=== PATIENT | male | born 1955 | race Caucasian/White ===

== ENCOUNTER 2018-02-28 07:46 | Day surgery (SDC) | payer MEDICARE, BC ==
[~2018-02-28] VITALS: Ht 175.3 cm; Wt 107.2 kg
[2018-02-28] MEDS ORDERED: GLUCOPHAGE500 MG/TAB PO (08:17)
[2018-02-28] MEDS ORDERED: LIPITOR 40MG TA40 MG PO (08:18)
[2018-02-28] MEDS ORDERED: TRICOR145 MG PO (08:18)
[2018-02-28] MEDS ORDERED: ASPIRIN E.C. 8181 MG PO (08:19)
[2018-02-28] MEDS ORDERED: DIOVAN 160MG160 MG PO (08:19)
[2018-02-28] MEDS ORDERED: ELIQUIS 5MG PO (08:19)
[2018-02-28] MEDS ORDERED: EPA FISH OIL1 SGL PO (08:20)
[2018-02-28 08:35] LABS: PROTHROMBIN TIME 11.7 SECONDS (9.7-12.8)
[2018-02-28 08:49] VITALS: BP 122/82; PULSE 98; TEMP 97.5
[2018-02-28 09:05] LABS: POTASSIUM 4.7 mmol/L (3.4-5.0)
[2018-02-28] MEDS ORDERED: MULTAQ400 MG PO (09:33)
[2018-02-28 09:40] LABS: THYROID STIMULATING HORMONE 2.11 uIU/mL (0.465-4.680)
[2018-02-28 09:50] VITALS: BP 125/85; PULSE 89
[2018-02-28 10:10] VITALS: BP 125/90; PULSE 88
[2018-02-28 10:25] VITALS: BP 116/67; PULSE 88
[2018-02-28 10:40] VITALS: BP 123/92; PULSE 80
== END 2018-02-28 10:55 | disposition home or self-care (01) ==
LOC: COL.CAR 07:46
PROVIDERS: Internal Medicine Cardiovascular Disease
DX: I48.91 Unspecified atrial fibrillation (principal); Z79.82 Long term (current) use of aspirin; Z79.899 Other long term (current) drug therapy; Z80.9 Family history of malignant neoplasm, unspecified; F17.290 Nicotine dependence, other tobacco product, uncomplicated; Z79.01 Long term (current) use of anticoagulants; E78.5 Hyperlipidemia, unspecified; I10 Essential (primary) hypertension
CPT/HCPCS: J7030

== ENCOUNTER 2018-03-07 14:30 | Inpatient (IN) | payer MEDICARE, BC ==
[~2018-03-07 14:30] MED LIST: ASPIRIN E.C. 8181 MG PO; DIOVAN 160MG160 MG PO; ELIQUIS 5MG PO; EPA FISH OIL1 SGL PO; GLUCOPHAGE500 MG/TAB PO; LIPITOR 40MG TA40 MG PO; MULTAQ400 MG PO; TRICOR145 MG PO
[2018-03-10] MEDS ORDERED: REVATIO20 MG PO (08:37)
[2018-03-10] MEDS ORDERED: CARDIZEM CD 12120 MG PO (08:39)
[2018-03-10 11:12] LABS: BASO % 0.4 % (0.0-2.0); EOS # 0.2 (0.0-0.7); EOS % 2.3 % (0-4.0); GRAN # 4.8 (1.4-6.5); GRAN % 58.5 % (42.2-75.2); HEMATOCRIT 41.1 % (42.0-52.0); HEMOGLOBIN 14.6 g/dl (13.5-18.0); LYMPH # 2.4 (1.2-3.4); LYMPH % 29.5 % (20.0-51.0); MEAN CELL VOLUME 88 fl (80.0-100.0); MEAN CORPUSCULAR HEMOGLOBIN 31 pg (27.0-31.0); MEAN CORPUSCULAR HGB CONC 36 g/dl (33.0-37.0); MEAN PLATELET VOLUME 9.4 fl (7.4-10.4); MONO # 0.7 (0.1-0.6); MONO % 8.9 % (1.7-9.3); PLATELET COUNT 173 K/mm3 (130-400); RED BLOOD COUNT 4.67 M/mm3 (4.20-5.60); REDCELL DISTRIBUTION WIDTH-CV 12.6 % (11.5-14.5)
[2018-03-10 11:25] LABS: INR 1.4 (0.8-3.0); PROTHROMBIN TIME 15.4 SECONDS (9.7-12.8)
[2018-03-10 11:26] LABS: ALBUMIN 3.9 gm/dL (3.5-5.0); BILIRUBIN,TOTAL 0.6 mg/dL (0.0-1.0); CALCIUM 9.5 mg/dL (8.4-10.2); CREATININE, serum 0.78 mg/dL (0.66-1.25); MAGNESIUM 1.4 mg/dL (1.6-2.3); POTASSIUM 4.5 mmol/L (3.4-5.0); TOTAL PROTEIN 6.9 gm/dL (6.4-8.2)
[2018-03-10 11:46] VITALS: BP 118/80; PULSE 109; TEMP 97.5
[2018-03-10 15:43] VITALS: BP 119/92; PULSE 107; TEMP 97.7
[2018-03-10 19:27] VITALS: BP 127/89; PULSE 127; TEMP 98.6
[2018-03-10 23:26] VITALS: BP 127/78; PULSE 67; TEMP 98.1
[2018-03-11] VITALS (10 sets, daily range): BP systolic 97–140; BP diastolic 55–93; PULSE 52–110; TEMP 97.4–98.8
[2018-03-12 03:41] VITALS: BP 111/69; PULSE 57; TEMP 98.1
[2018-03-12 08:04] LABS: BASO % 0.4 % (0.0-2.0); EOS # 0.2 (0.0-0.7); GRAN % 59.8 % (42.2-75.2); HEMATOCRIT 38.7 % (42.0-52.0); HEMOGLOBIN 13.7 g/dl (13.5-18.0); LYMPH # 1.9 (1.2-3.4); LYMPH % 27.8 % (20.0-51.0); MEAN CELL VOLUME 88 fl (80.0-100.0); MEAN CORPUSCULAR HEMOGLOBIN 31 pg (27.0-31.0); MEAN CORPUSCULAR HGB CONC 35 g/dl (33.0-37.0); MEAN PLATELET VOLUME 9.8 fl (7.4-10.4); MONO # 0.6 (0.1-0.6); MONO % 8.7 % (1.7-9.3); PLATELET COUNT 163 K/mm3 (130-400); RED BLOOD COUNT 4.41 M/mm3 (4.20-5.60); REDCELL DISTRIBUTION WIDTH-CV 12.4 % (11.5-14.5)
[2018-03-12 08:16] LABS: CREATININE, serum 0.66 mg/dL (0.66-1.25); MAGNESIUM 1.7 mg/dL (1.6-2.3); POTASSIUM 4.2 mmol/L (3.4-5.0)
[2018-03-12 08:43] VITALS: BP 123/69; PULSE 57; TEMP 98.4
[2018-03-12] MEDS ORDERED: BETAPACE 80MG80 MG PO (10:29)
== END 2018-03-12 11:28 | disposition home or self-care (01) | DRG 310 ==
LOC: MEDICAL 03-10 08:15
PROVIDERS: Nurse Practitioner
PROC: 5A2204Z Restoration of Cardiac Rhythm, Single (ICD-10-PCS; principal; 2018-03-11)
DX: I48.91 Unspecified atrial fibrillation (principal); I10 Essential (primary) hypertension; F17.210 Nicotine dependence, cigarettes, uncomplicated; Z79.01 Long term (current) use of anticoagulants
CPT/HCPCS: J2250; J3010; J3475

== ENCOUNTER → 2018-04-21 | Outpatient (CLI) | payer MEDICARE, BC ==
[~2018-04-21] MED LIST changes: +BETAPACE 80MG80 MG PO; +CARDIZEM CD 12120 MG PO; +REVATIO20 MG PO
== END ==
LOC: COL.RAD 07:30
DX: Z13.6 Encounter for screening for cardiovascular disorders (principal)

== ENCOUNTER 2018-07-26 10:53 | Day surgery (SDC) | payer MEDICARE, BC ==
[~2018-07-26] VITALS: Ht 175.4 cm; Wt 113.2 kg
[2018-07-26 11:48] LABS: INR 1.3 (0.8-3.0); PROTHROMBIN TIME 14.4 SECONDS (9.7-12.8)
[2018-07-26 11:50] VITALS: BP 125/96; PULSE 77; TEMP 97.5
[2018-07-26 11:50] LABS: POTASSIUM 4.5 mmol/L (3.4-5.0)
[2018-07-26 12:23] LABS: THYROID STIMULATING HORMONE 1.61 uIU/mL (0.465-4.680)
[2018-07-26] MEDS ORDERED: BETAPACE 120MG120 MG PO (12:32)
[2018-07-26 12:45] VITALS: BP 111/78; PULSE 70
[2018-07-26 12:49] VITALS: BP 121/78; PULSE 108
[2018-07-26 13:00] VITALS: BP 108/77; PULSE 72
[2018-07-26 13:15] VITALS: BP 111/77; PULSE 67
[2018-07-26 13:30] VITALS: BP 105/73; PULSE 69
== END 2018-07-26 13:50 | disposition home or self-care (01) ==
LOC: COL.CAR 10:53
PROVIDERS: Internal Medicine Cardiovascular Disease
DX: I48.0 Paroxysmal atrial fibrillation (principal); I10 Essential (primary) hypertension; E78.5 Hyperlipidemia, unspecified; E88.81 Metabolic syndrome and other insulin resistance; Z79.01 Long term (current) use of anticoagulants; Z79.899 Other long term (current) drug therapy; F17.290 Nicotine dependence, other tobacco product, uncomplicated; Z82.49 Family history of ischemic heart disease and other diseases of the circulatory system; Z80.9 Family history of malignant neoplasm, unspecified
CPT/HCPCS: J2250; J3010; J7030

== ENCOUNTER → 2019-03-07 | Outpatient (CLI) | payer MEDICARE, BC ==
[~2019-03-07] MED LIST changes: +BETAPACE 120MG120 MG PO
== END ==
LOC: COL.RAD 08:09
DX: K86.89 Other specified diseases of pancreas (principal); R63.4 Abnormal weight loss; R63.1 Polydipsia; R73.01 Impaired fasting glucose
CPT/HCPCS: Q9967

== ENCOUNTER → 2020-03-07 | Outpatient (CLI) | payer MEDICARE, BC | LOC: COL.RAD 12:00 | DX: N13.30 Unspecified hydronephrosis (principal) ==

== ENCOUNTER → 2020-03-08 | Outpatient (CLI) | payer MEDICARE, BC | LOC: COL.RAD 13:26 | DX: K86.1 Other chronic pancreatitis (principal); N13.2 Hydronephrosis with renal and ureteral calculous obstruction | CPT/HCPCS: Q9967 ==

== ENCOUNTER 2023-09-16 07:19 | Day surgery (SDC) | payer MEDICARE, BC ==
[~2023-09-16] VITALS: Ht 175.4 cm; Wt 87.0 kg
[~2023-09-16 07:19] MED LIST changes: -LIPITOR 40MG TA40 MG PO; +LIPITOR20 MG PO
[2023-09-16 07:56] VITALS: BP 93/70; PULSE 93; TEMP 97.6
[2023-09-16] MEDS ORDERED: JARDIANCE25 PO (08:06)
[2023-09-16] MEDS ORDERED: OZEMPIC0.25 MG/02 SQ (08:07)
[2023-09-16] MEDS ORDERED: BENICAR40 MG PO (08:07)
[2023-09-16] MEDS ORDERED: BASAGLAR K100 UNIT/1 SQ (08:08)
[2023-09-16] MEDS ORDERED: CEPHALEXIN500 M1 PO (09:31)
[2023-09-16 09:42] VITALS: BP 111/90; PULSE 89; PULSE 95
--- NOTE | 2023-09-16 10:00 | NUR ---
Discharge instructions given to pt.pt verbalizes understanding.Pt escorted out by this nurse.
== END 2023-09-16 10:09 ==
LOC: COL.CAR 07:19
DX: I48.0 Paroxysmal atrial fibrillation (principal); I47.19 Other supraventricular tachycardia